=== PATIENT | female | born 1985 | race Caucasian/White ===

== ENCOUNTER 2018-10-25 10:47 | Emergency (ER) | payer MEDICAID ==
--- NOTE | 2018-10-25 12:11 | EDPHY ---
General - History Smoking Status: Never smoked Time Seen by Provider: 10/25/18 12:00 Narrative: CLINICAL IMPRESSION: Threatened miscarriage, subchorionic hemorrhage, external hemorrhoids ASSESSMENT/PLAN: Patient is a female visiting from [facility] who presents with first trimester bleeding. Patient is afebrile and not toxic appearing, in no acute distress. Her abdomen is soft, nontender to palpation; no evidence of a surgical abdomen on initial and reevaluation. CBC revealed mild leukocytosis, non specific, mild anemia. Pelvic US reveals cervical OS closed, single live intrauterine with average age of 8 weeks 1 day and heart rate of 167. There is a 2 x 2 cm subchorionic hemorrhage noted, positive identification of her IUD anterior to IUP. There is no evidence of ectopic , ovarian torsion or acute surgical abdomen. She is O+ and does not require RhoGAM, not currently bleeding. Hcg quant 118k. H&P with ED evaluation consistent with threatened miscarriage with retained IUD and external hemorrhoids. Discussed with [employer] Dr. Ma, she felt that in light unsuccessful IUD removal attempt prior that she will likely need this done under US. She felt that the patient was safe to travel this evening and follow up as soon as she returns to [facility]. Dr. Curry discussed this case with Dr. Ma as well, asked for formal eval however she was unable to come immediately. Discussed option for patient to wait for formal OB eval in the ED however patient refuses after long discussion as she does not want to miss her flight. She clearly stated to myself and Dr. Curry that she understands high risk of miscarriage and wishes to be discharged. She understands to seek medical attention immediately for significant bleeding, abdominal pain, fever or for any other concerning symptom. Again patient verbalizes understanding and is in agreement with this plan. ED COURSE: 1220: Case discussed with Dr. Curry. 1550: Case discussed with Dr. Ma, OBGYN on-call. Per Dr. Ma recommendations, she feels that the patient is safe to travel back to [facility] however understanding that she is at increased risk for miscarriage. Ultimately this patient does need her IUD removed however in light of unsuccessful attempt prior doctor Francesca does not feel comfortable doing this in the emergency department. Dr. Curry also spoke to Dr. Ma personally. 1600: Both myself and Dr. Curry had long discussion with patient regarding increased risk of miscarriage with IUD remaining in place. Offered to have OBGYN formally come into the emergency department for evaluation however patient declines and would prefer to proceed with her flight to [facility] and have repeat examination upon her arrival back in [facility]. Patient specifically understands her high risk of miscarriage secondary to leaving her IUD in place. Patient again verbalizes to myself that she is in understanding of this and excepting and wishes to be discharged. CHIEF COMPLAINT: Vaginal bleeding in HPI: Patient is a female, recent diagnosis of with known retained IUD that presents with vaginal bleeding. Patient is travelling, originally from [facility] with plans to return this evening presents with spotting brown for 2 weeks, bright yesterday evening. Patient found out 2 weeks ago positive at home , [facility]. Was in [place] and had formal OBGyn eval with confirmed IUP, unsuccessful attempt to remove IUD. Patient reports she has been spotting for 2 weeks on and off, yesterday evening filled half a small pad with BRB and then has had not further bleeding. She has had no fever, N/V or abdominal pain. She has had no urinary symptoms to include dysuria, hematuria or increased frequency. She has been experiencing constipation and subsequently developed hemorrhoids several weeks ago, very tender. Denies any other complains or concerns. PMH: Denies Pertinent Past Surgical History: Denies Social History: Denies ETOH, illicit drugs or smoking REVIEW OF SYSTEMS: All other systems negative Constitutional: No fever, no chills, appetite change. Eyes: No discharge, vision change. ENT: No sore throat, congestion, ear pain. Cardiovascular: No chest pain, no palpitations. Respiratory: No cough, no shortness of breath. Gastrointestinal: No abdominal pain, no vomiting, diarrhea. Genitourinary: Vaginal bleeding yesterday, hemorrhoids. No hematuria, dysuria, flank pain, pelvic pain. Musculoskeletal: No back pain, joint swelling, joint pain, myalgias. Skin: No rashes, color change. Neurological: No headache, dizziness, weakness. PHYSICAL EXAM: General Appearance: Well appearing, no acute distress. HENT: Normocephalic, atraumatic. Bilateral external ears are normal. Bilateral tympanic membranes are normal with pearly ballesteros reflex. Nares are clear, mucosa is pink. Oropharynx is clear, uvula is midline. There is no tonsillar enlargement or exudate. The dentition is normal. Eyes: PERRLA, no nystagmus, swelling, discharge, pain or photosensitivity. Conjunctiva pink, no pallor or injection. Neck: Supple, nontender, no lymphadenopathy, no midline pain, FROM, no meningismus. Respiratory: There are no retractions, lungs are clear to auscultation. Cardiac: Regular rate and rhythm, no murmurs or gallops. Gastrointestinal: Abdomen is soft, nontender, bowel sounds normal, no masses/ hernia, no rigidity, guarding or focal peritoneal findings. : 2 small external hemorrhoids, soft however tender. Non-thrombosed, no erythema. Neurological: Alert and oriented x 3, CN 2-12 grossly intact, normal gait no ataxia, DTR's intact, normal sensation and strength. Skin: Warm, dry, no rashes, no nodules on palpation. Musculoskeletal: Extremities are symmetrical, full range of motion, no tenderness, deformity, swelling, or erythema. Psychiatric: Patient is oriented X 3, there is no agitation. MEDICAL DECISION MAKING: Patient was seen independently. Secondary supervising physician at time of evaluation was Dr. Curry, she also evaluated this patient. Diagnosis: Vaginal bleeding, first trimester . New, requires workup Summary: See Assessment and Plan for summary of ED visit. Clinical lab tests: ordered / reviewed. Independent visualization of images, tracing, or specimens: No. Decision to obtain medical records or history from someone other than the patient:No Review / Summarize previous medical records: None available. Discussed patient with another provider: Yes, Dr. Curry, Dr. Ma. Patient Progress: Stable, discharge (Reny Casillas) Discussion: I evaluated and participated in the management of the patient. My co-signature indicates that I have reviewed this chart and I agree with the findings and plan of care as documented. My personal H&P findings include: 33 year old female with an IUD in place and document IUP presents with vaginal bleeding. Patient very uncomfortable on examination, from rectal hemorrhoids. No abdominal pain or pelvic pain at present, no vaginal bleeding currently. This is her third visit to medical providers for same issue. Pleasant, alert, conversant. VS stable. Abdomen soft, no tenderness to palpation, no flank pain. Lungs clear, heart regular. Alert, 0x3 US here demonstrated single IUP with cardiac activity, IUP visible anterior to gestational sac and a small subchorionic hemorrhage. Impression: 1. Single viable intrauterine gestation with size consistent with LMP dates. 2. FHR = 167 bpm 3. Recommend followup anatomy scan between 19 and 20 weeks gestation. 4. IUD identified within the endometrial canal anterior to the gestational sac. 5. A small subchorionic hemorrhage lower uterine segment measuring 1.9 x 1.7 x 1.4 cm. Findings and recommendations discussed with Emergency Department physician, WILLI Naranjo at 1430 hours on October 25, 2018. Final report concurs with initial preliminary interpretation. Dictated By : Hero Sanabria Discussed with Dr Ma; requested she see patient and provide consultation regarding removal of IUD and other mangament issues. Initial recommendation by Dr Ma was to have patient follow up on return to [facility]. Patient hemodynamically stable here. Offered to see patient if patient wished to discuss with her; she is available after she finishes with clinic patients. Long discussion held between myself and patient. Discussed Dr Ma recommendation; discussed potential hazards of IUD removal vs hazards of continuing with IUD in place. Patient elected to continue her travels to [facility] (she would miss flight to [facility] if she stayed to discuss with Dr Ma) and understands chance of miscarriage, chance of continuing pain and bleeding, risk of removal of IUD and risk of retaining IUD. Understands at this point is non-viable but chance of carrying to term is present. (Meghann Curry) - Objective Vital Signs: Initial Vital Signs Temperature (C) 36.5 C 10/25/18 10:54 Heart Rate 88 10/25/18 10:54 Respiratory Rate 18 10/25/18 10:54 Blood Pressure 109/90 H 10/25/18 10:54 O2 Sat (%) 100 10/25/18 10:54 O2 Delivery Mode Room Air Allergies/Adverse Reactions: No Known Allergies Allergy (Unverified 10/25/18 10:53) Home Medications: Medication Instructions Recorded NK [No Known Home Meds] 10/25/18 Laboratory Results: Laboratory Results 10/25/18 12:24 10/25/18 12:24 Medications Given: Discontinued Medications Hydrocodone Bitart/Acetaminophen ([place] 5/325mg Prepack#6) 1 btl TAKEHOME EDNOW ONE Stop: 10/25/18 15:38 Last Admin: 10/25/18 16:14 Dose: 1 btl Departure - Departure Disposition: Home, Routine, Self-Care Clinical Impression: Vaginal bleeding in , IUD failure, , IUD (intrauterine device ) in place, Acute hemorrhoid Subchorionic hemorrhage Qualifiers: Fetus number: single or unspecified fetus Trimester: first trimester Qualified Code(s): O41.8X10 - Other specified disorders of amniotic fluid and membranes, first trimester, not applicable or unspecified; O46.8X1 - Other antepartum hemorrhage, first trimester; O46.8X1 - Other antepartum hemorrhage, first trimester Condition: Good Instructions: Threatened Miscarriage (ED), Hemorrhoids (ED), Subchorionic Hemorrhage (ED) Additional Instructions: DISCHARGE INSTRUCTIONS FROM YOUR DOCTOR Thank you for visiting our emergency department today. Please keep in mind that discharge from the emergency department does not mean that there is nothing wrong - it simply means that we have not identified an emergency condition that requires further evaluation or treatment in the hospital. Your ultrasound revealed a positive intrauterine with a heart rate of 174. Estimated age 7 weeks 5 days. You were noted to have an IUD in place, there was also a subchorionic hemorrhage noted. You are at high risk for miscarriage. It is very important that you follow up immediately on your return to [facility]. Seek emergency medical attention should you develop significant bleeding, significant pain, fever, nausea, vomiting or any other concerning symptom. In regards to your hemorrhoids, it is important that she stay hydrated. Please combine your preparation H and hydrocortisone and apply several times a day. Continue your stool softener. You were given a narcotic which will also cause constipation. People present with illnesses and injuries in different ways, and it is always possible that we have missed something. You may always return for re-evaluation if symptoms worsen or if they are not improving or if you develop new/different symptoms. Again, thank you for choosing our emergency department. We hope that you feel better. Referrals: NONE *PRIMARY CARE P,. [Primary Care Provider] - As per Instructions
[2018-10-25 12:46] LABS: PLATELET COUNT 275 10^3/uL (150-400)
[2018-10-25] MEDS ORDERED: HYDROCOD/APAP 5/325 PREPACK#6 BTL TAKEHOME ONE (15:37)
[2018-10-25 15:41] VITALS: BP 140/87
[2018-10-25] MEDS ORDERED: HYDROCORTISONE 1% CREAM TP ONE (15:41)
== END 2018-10-25 16:28 | disposition home or self-care (01) ==
DX: O20.0 Threatened abortion (principal); O20.8 Other hemorrhage in early pregnancy; Z3A.08 8 weeks gestation of pregnancy